=== PATIENT | female | born 1985 | race Caucasian/White ===

== ENCOUNTER 2022-01-27 00:56 | Emergency (ER) | payer OTHER, SELFPAY ==
[2022-01-27 01:04] VITALS: BP 104/56; PULSE 101; RESP 18; TEMP 36.9; O2SAT 100; BMI 33.6
[2022-01-27 02:17] VITALS: BP 109/60; PULSE 92; RESP 16; TEMP 36.8; O2SAT 100
[2022-01-27 02:36] VITALS: BP 101/41; PULSE 89; TEMP 36.7; O2SAT 100; BMI 32.8
[2022-01-27 04:00] VITALS: BP 103/58; PULSE 85; RESP 17; O2SAT 97
[2022-01-27] MEDS: Lidocaine HCl 1 % MPF 5 ML VIAL SUBCUT (04:46)
--- NOTE | 2022-01-27 04:46 | ED_ITS ---
HPI - Skin/Abscess/Foreign Bdy General Chief complaint: Skin/Abscess/Foreign Body Stated complaint: lump in breast Time Seen by Provider: 01/27/22 01:13 Source: patient Mode of arrival: ambulatory History of Present Illness HPI narrative: 36-year-old female who presents with increasing redness and swelling at the underside of her right breast not associated with any fevers or chills and she denies noting any pimple and does not recall scratching at the skin. Related Data Previous Rx's Medication Instructions Recorded doxycycline hyclate 100 mg tablet 100 mg PO BID 5 days #10 tabs 01/27/22 Allergies Allergy/AdvReac Type Severity Reaction Status Date / Time ibuprofen [From MOTRIN] Allergy Intermediate SWELLING Verified 01/27/22 02:46 Review of Systems Review of Systems: Pertinent positives and negatives as stated in HPI 10 point review of systems is otherwise negative. PMFSH Past Medical History Source: nursing notes reviewed Social History Social History Alcohol intake: never Patient Tobacco Use Status: Current everyday Tobacco user Smoked in Last 30 Days: Yes Use of substances other than those prescribed or required for medical reasons: No Advance Directives: No Patient : No Physical Exam Vital Signs: Vital Signs: Last Vital Signs Temp 98.1 F 01/27/22 02:36 Pulse 85 01/27/22 04:00 Resp 17 01/27/22 04:00 BP 103/58 L 01/27/22 04:00 Pulse Ox 97 01/27/22 04:00 O2 Del Method 01/27/22 04:00 BMI result Body Mass Index 32.8 VITAL SIGNS: Reviewed. GENERAL: Well developed, well nourished, in no acute distress. HEAD: Normocephalic/atraumatic EYES: PERRLA, EOMI EARS: Ext canals without abnormality OROPHARYNX: no oral lesions noted, posterior pharynx clear LUNGS: Normal breath sounds. SpO2<97> RIGHT BREST: There is noted abscess to the 06:00 o'clock underside portion of the right breast with noted fluctuance and surrounding erythema CARDIOVASCULAR: Regular rate and rhythm without noted murmurs ABDOMEN: Soft, non-tender, non-distended with bowel sounds. MUSCULOSKELETAL: No tenderness, deformities, or effusions noted on gross inspection. EXTREMITIES: No cyanosis, clubbing or edema. SKIN: Inspection of the skin reveals no rashes NEUROLOGIC: Alert and oriented x 4. Strength and sensation to light touch were grossly intact x 4. Course Course Course Narrative: 36-year-old female with history and clinical presentation consistent with right breast abscess, she underwent a needle syringe aspiration for copious amounts purulence after application of topical anesthetic. Patient tolerated procedure well, received initial antibiotics here in the emergency room and then was discharged on remaining course. Procedures Abscess I/D Site: other (Breast) Side (if applicable): right Local Anesthetic: lidocaine 1% Amount of anesthesia used (mL): 1 Technique: needle aspiration Amount of fluid expressed (mL): 20 Sent for culture/gram staining?: No Irrigation: No Packing used?: none Discharge Plan Discharge Clinical Impression: Abscess of breast, right, Status post fine needle aspiration Patient Disposition: Home, Self-Care Instructions: Mastitis (ED), Warm Compress or Soak (ED) Additional Instructions: 1. Resume all home medications as prescribed. 2. Recommend [id number] Tylenol/ibuprofen as needed for pain control. Rec ommend warm moist soaks, 3 to 4 times a day. 3. Complete the entire course of antibiotics as prescribed. 4. It is very important that you follow-up with your primary care provider by calling the office on Friday morning to schedule an appointment for re- evaluation. Prescriptions: New doxycycline hyclate 100 mg tablet 100 mg PO BID 5 Days Qty: 10 0RF Referrals: Dickson Alvarado MD [Primary Care Provider] -
== END 2022-01-27 05:13 | disposition home or self-care (01) ==
PROVIDERS: Emergency Provider Student in an Organized Health Care Education/Training Program; PCP Internal Medicine
DX: N61.1 Abscess of the breast and nipple (principal); F17.200 Nicotine dependence, unspecified, uncomplicated
CPT/HCPCS: 10160; 99284

== ENCOUNTER 2022-09-08 16:38 | Emergency (ER) | payer OTHER, SELFPAY ==
--- NOTE | ~2022-09-08 | XR_ITS ---
EXAMINATION: XR CHEST CLINICAL INFORMATION: Shortness of breath COMPARISON: Chest x-ray on 09/11/2013 TECHNIQUE: Frontal view of the chest was obtained. FINDINGS: No significant abnormality is noted involving the heart, lungs, mediastinum, bony thorax or soft tissues. XR/XR chest 1V IMPRESSION: Unremarkable examination.
--- NOTE | ~2022-09-08 | US_ITS ---
EXAMINATION: US VENOUS ULTRASOUND WITH DOPPLER LOWER EXTREMITY, LEFT CLINICAL INFORMATION: Left lower extremity pain COMPARISON: None TECHNIQUE: Ultrasound of the deep veins is performed from the hip to the calf with compression sonography and color and pulse Doppler assessment. Spectral analysis with color-flow imaging is performed. FINDINGS: There is normal venous compression and respiratory variation and augmented flow. The visualized common femoral vein, superficial femoral vein, profunda femoral vein, popliteal vein, and the trifurcation region shows no evidence of deep venous thrombosis. There is no significant popliteal fossa cyst. If the patient's symptoms persist, followup ultrasound in 5 days 7 days might be of value to exclude proximal propagation from a non-visualized calf vein. US/US venous duplex LE LT IMPRESSION: No DVT demonstrated in the left lower extremity.
--- NOTE | 2022-09-08 16:41 | ED_ITS ---
HPI - General Adult General Chief complaint: General Medical <GILSON Art - Last Filed: 09/08/22 16:44> Stated complaint: blood clot? sent from urgent care <GILSON Art - Last Filed: 09/08/22 16:44> Time Seen by Provider: 09/08/22 18:22 <GILSON Art - Last Filed: 09/08/22 16:44> Source: patient, RN notes reviewed and old records reviewed <Cecilio Murray - Last Filed: 09/08/22 19:39> Mode of arrival: ambulatory <Cecilio Murray - Last Filed: 09/08/22 19:39> Limitations: no limitations <Cecilio Murray - Last Filed: 09/08/22 19:39> History of Present Illness HPI narrative: 36-year-old female who denies any significant past medical history presents for evaluation of left leg swelling. Patient reports that her leg has been swollen for the last 6 days. She reports it is moderately uncomfortable with achy pain at 5/10 pain The pain radiates to behind the left calf She denies any injury to the lower extremity. She denies any chest pain or shortness of breath. Denies any history of DVTs. She does report having a drug eluting IUD. Denies any recent travel Of note, the patient states that she was prescribed p.r.n. clonidine it took 1 dose last Friday, 2 days before the leg swelling, she is unsure if this is relat ed. She also reports that a few days before the onset of her symptoms she developed severe bilateral back pain that was worse with walking up the stairs. She does report a history of back surgeries. And she currently has no back pain <Cecilio Murray - Last Filed: 09/08/22 19:39> Related Data Home medications: Previous Rx's Medication Instructions Recorded doxycycline hyclate 100 mg tablet 100 mg PO BID 5 days #10 tabs 01/27/22 <GILSON Art - Last Filed: 09/08/22 16:44> Allergies/adverse reactions: Allergies Allergy/AdvReac Type Severity Reaction Status Date / Time ibuprofen [From MOTRIN] Allergy Intermediate SWELLING Verified 01/27/22 02:46 <GILSON Art - Last Filed: 09/08/22 16:44> Review of Systems Constitutional: Constitutional: Reports as per HPI, Denies chills and Denies fatigue <Cecilio Murray - Last Filed: 09/08/22 19:39> Cardiovascular: Cardiovascular: Denies chest pain, Reports pedal edema and Denies dyspnea <Cecilio Murray - Last Filed: 09/08/22 19:39> Respiratory: Respiratory: Denies cough and Denies dyspnea <Ceciliojcarlos Murray - Last Filed: 09/08/22 19:39> Gastrointestinal: Gastrointestinal: Denies abdominal pain, Denies constipation and Denies vomiting <Cecilio Murray - Last Filed: 09/08/22 19:39> Genitourinary: Genitourinary: Denies dysuria <Cecilio Murray - Last Filed: 09/08/22 19:39> Musculoskeletal: Comments: Patient has to 3+ nonpitting edema to the left lower extremity up to just below the knee. There is a mild abrasion to the left anterior knee. No significant edema or laceration. Patient is nontender with manipulation of the left hip, knee, ankle. Patient does have tenderness the left calf without deformity <Cecilio Murray - Last Filed: 09/08/22 19:39> Endocrine: Endocrine: Denies fatigue <Cecilio Murray - Last Filed: 09/08/22 19:39> [facility] Social History Social History: Social History Alcohol intake: never Patient Tobacco Use Status: Current everyday Tobacco user Advance Directives: No Advance Directives Information Provided: No <GILSON Art - Last Filed: 09/08/22 16:44> Physical Exam ED Vital Signs: Vital Signs - 24 hr 09/08/22 16:42 09/08/22 19:35 Temperature 98.5 F 98.0 F Pulse Rate 102 H 74 Respiratory Rate 18 18 Blood Pressure 129/83 108/71 Pulse Oximetry 100 99 Oxygen Delivery Method Room Air Room Air BMI result Body Mass Index 38.0 <GILSON Art - Last Filed: 09/08/22 16:44> Vital Signs - 24 hr 09/08/22 16:42 09/08/22 19:35 Temperature 98.5 F 98.0 F Pulse Rate 102 H 74 Respiratory Rate 18 18 Blood Pressure 129/83 108/71 Pulse Oximetry 100 99 Oxygen Delivery Method Room Air Room Air BMI result Body Mass Index 38.0 <Cecilio OCaribou - Last Filed: 09/08/22 19:39> Const General: healthy appearing, comfortable, no acute distress, alert and awake <Cecilio - Last Filed: 09/08/22 19:39> Nutritional Appearance: well nourished < - Last Filed: 09/08/22 19:39> Orientation/consciousness: patient oriented x3 < - Last Filed: 09/08/22 19:39> Eyes Eyelids: Yes eyelids normal < - Last Filed: 09/08/22 19:39> Conjunctivae: conjunctivae normal < - Last Filed: 09/08/22 19:39> Sclerae: sclerae normal < Last Filed: 09/08/22 19:39> Corneas: corneas normal < - Last Filed: 09/08/22 19:39> Pupils: Equal, round and reactive pupils present <Cecilio O - Last Filed: 09/08/22 19:39> EOM: EOMs intact bilaterally <Cecilio - Last Filed: 09/08/22 19:39> Resp Effort & Inspection: normal respiratory effort, able to speak in complete sentences, no audible wheezes and not labored < Last Filed: 09/08/22 19:39> Skin Other: No skin changes to the left lower extremity including erythema, increased warmth, ecchymosis. < - Last Filed: 09/08/22 19:39> General skin exam: no rashes or lesions noted and elasticity normal < - Last Filed: 09/08/22 19:39> Lesions: no lesions < - Last Filed: 09/08/22 19:39> Rashes: no rashes <Cecilio JpTad - Last Filed: 09/08/22 19:39> Neuro General: patient oriented x3 <Cecilio WarrenLouiseTad - Last Filed: 09/08/22 19:39> Cranial nerves: Yes Equal, round and reactive pupils present <Cecilio WarrenLouiseTad - Last Filed: 09/08/22 19:39> Extrem General: Yes full ROM <Cecilio Murray - Last Filed: 09/08/22 19:39> Course Course Course Narrative: This is an RME: Additional HPI, ROS, PE not included below will be deferred to primary provider. 36-year-old female without significant medical history presents with left lower extremity pain and swelling and tenderness the calf. Was sent in for her on the urgent care to rule out DVT of left lower extremity. Reports shortness of breath with exertion. Also has been experiencing chest pain with exertion. Patient currently on IUD for control. No history of clots. Denies long travel. Physical exam left lower extremity with 2+ pitting edema, normal right lower extremity. Palpable pulses, dorsalis pedis, anterior tibialis and posterior tibialis 2+ equal bilateral. Concerns for DVT. Obtain venous duplex and basic labs. <GILSON Art - Last Filed: 09/08/22 16:44> Medical Decision Making Medical Decision Making MDM Narrative: 36-year-old female presents for evaluation of unilateral leg swelling with this atraumatic. He denies any associated symptoms. She reports that she started clonidine 2 days prior to the onset of her leg swelling relative 1 dose and nurse notes have not improved. She was attempting to elevate her legs without improvement. She had ultrasound that rules out DVT. There are notice changes to suggest infectious cause. There are no traumatic injuries. Of note, the patient did state that just before symptoms she had severe back pain. The it is unlikely that she would have a clot below the bifurcation of the aorta but not picked up by duplex sonography. I discussed all this with the patient. She will follow-up with her PCP for repeat ultrasound in 1 week if her symptoms persist <Cecilio Murray - Last Filed: 09/08/22 19:39> Differential Diagnosis Leg swelling Dependent edema Cellulitis DVT Pierce cyst <Cecilio Murray - Last Filed: 09/08/22 19:39> Lab Data Result Diagrams: 09/08/22 16:58 09/08/22 16:58 <GILSON Art - Last Filed: 09/08/22 16:44> Labs: Lab Results 09/08/22 09/08/22 09/08/22 Range/Units 16:58 16:58 16:58 WBC 7.5 (4.8-10.8) X10*3/uL RBC 4.20 (4.20-5.50) X10*6/uL Hgb 12.9 (12.0-16.0) g/dl Hct 37.2 (37.0-47.0) % MCV 88.6 (80.0-98.0) fL MCH 30.7 (27.0-33.0) pg MCHC 34.7 (31.0-35.0) g/dl RDW 11.7 (11.0-16.0) % Plt Count 262 (160-400) X10*3/uL MPV 10.0 (9.4-12.3) fL Immature Gran % (Auto) 0.3 (0.0-0.4) % Neut % (Auto) 56.7 (45-73) % Lymph % (Auto) 32.1 (20-40) % Coke % (Auto) 6.0 (2-11) % Eos % (Auto) 4.1 H (0-4) % Baso % (Auto) 0.8 (0-2) % Lymph # (Auto) 2.4 (1.2-4.9) X10*3/uL Coke # (Auto) 0.5 (0.1-1.2) X10*3/uL Eos # (Auto) 0.3 (0.0-0.4) X10*3/uL Baso # (Auto) 0.1 (0.0-0.2) X10*3/uL Abs Immat Gran (auto) 0.02 (0.00-0.03) X10*3/uL Absolute Neuts (auto) 4.3 (2.0-8.3) x10*3/uL Absolute Nucleated RBC 0.000 (0.0-0.012) X10*3/uL Nucleated RBC % (auto) 0.0 (0.0-0.2) /100WBC PT 12.2 (10.0-13.1) SEC INR 1.1 (0.9-1.1) D-Dimer High Sensitivty 181 NG/ML Sodium 141 (135-145) mmol/L Potassium 4.0 (3.3-5.1) mmol/L Chloride 108 (96-108) mmol/L Carbon Dioxide 23 (22-29) mmol/L Anion Gap 14 (12-20) BUN 10 (9-16) mg/dL Creatinine 0.80 (0.5-1.4) mg/dL Estim Creat Clear Calc 108.0 Estimated GFR > 60 Random Glucose 94 (60-115) mg/dL Calcium 8.8 (8.4-10.2) mg/dL Magnesium 1.7 (1.6-2.6) mg/dL Total Bilirubin 0.5 (0.0-1.0) mg/dL AST 18 (5-31) U/L ALT 15 (0-31) U/L Alkaline Phosphatase 66 (39-117) U/L Troponin I High Sens (<3.5-17.0) ng/L B-Natriuretic Peptide (<100) pg/mL Total Protein 6.8 (6.5-8.0) g/dL Albumin 3.9 (3.5-5.0) g/dL COVID-19 ([facility]) (Negative) COVID-19 Clin Com 09/08/22 09/08/22 09/08/22 Range/Units 16:58 16:58 16:59 WBC (4.8-10.8) X10*3/uL RBC (4.20-5.50) X10*6/uL Hgb (12.0-16.0) g/dl Hct (37.0-47.0) % MCV (80.0-98.0) fL MCH (27.0-33.0) pg MCHC (31.0-35.0) g/dl RDW (11.0-16.0) % Plt Count (160-400) X10*3/uL MPV (9.4-12.3) fL Immature Gran % (Auto) (0.0-0.4) % Neut % (Auto) (45-73) % Lymph % (Auto) (20-40) % Coke % (Auto) (2-11) % Eos % (Auto) (0-4) % Baso % (Auto) (0-2) % Lymph # (Auto) (1.2-4.9) X10*3/uL Coke # (Auto) (0.1-1.2) X10*3/uL Eos # (Auto) (0.0-0.4) X10*3/uL Baso # (Auto) (0.0-0.2) X10*3/uL Abs Immat Gran (auto) (0.00-0.03) X10*3/uL Absolute Neuts (auto) (2.0-8.3) x10*3/uL Absolute Nucleated RBC (0.0-0.012) X10*3/uL Nucleated RBC % (auto) (0.0-0.2) /100WBC PT (10.0-13.1) SEC INR (0.9-1.1) D-Dimer High Sensitivty NG/ML Sodium (135-145) mmol/L Potassium (3.3-5.1) mmol/L Chloride (96-108) mmol/L Carbon Dioxide (22-29) mmol/L Anion Gap (12-20) BUN (9-16) mg/dL Creatinine (0.5-1.4) mg/dL Estim Creat Clear Calc Estimated GFR Random Glucose (60-115) mg/dL Calcium (8.4-10.2) mg/dL Magnesium (1.6-2.6) mg/dL Total Bilirubin (0.0-1.0) mg/dL AST (5-31) U/L ALT (0-31) U/L Alkaline Phosphatase (39-117) U/L Troponin I High Sens < 3.5 (<3.5-17.0) ng/L B-Natriuretic Peptide 28 (<100) pg/mL Total Protein (6.5-8.0) g/dL Albumin (3.5-5.0) g/dL COVID-19 ([facility]) Negative (Negative) COVID-19 Clin Com See Note <GILSON Art - Last Filed: 09/08/22 16:44> Lab Results 02/09/08/22 09/08/22 Range/Units 16:58 16:58 16:58 WBC 7.5 (4.8-10.8) X10*3/uL RBC 4.20 (4.20-5.50) X10*6/uL Hgb 12.9 (12.0-16.0) g/dl Hct 37.2 (37.0-47.0) % MCV 88.6 (80.0-98.0) fL MCH 30.7 (27.0-33.0) pg MCHC 34.7 (31.0-35.0) g/dl RDW 11.7 (11.0-16.0) % Plt Count 262 (160-400) X10*3/uL MPV 10.0 (9.4-12.3) fL Immature Gran % (Auto) 0.3 (0.0-0.4) % Neut % (Auto) 56.7 (45-73) % Lymph % (Auto) 32.1 (20-40) % Coke % (Auto) 6.0 (2-11) % Eos % (Auto) 4.1 H (0-4) % Baso % (Auto) 0.8 (0-2) % Lymph # (Auto) 2.4 (1.2-4.9) X10*3/uL Coke # (Auto) 0.5 (0.1-1.2) X10*3/uL Eos # (Auto) 0.3 (0.0-0.4) X10*3/uL Baso # (Auto) 0.1 (0.0-0.2) X10*3/uL Abs Immat Gran (auto) 0.02 (0.00-0.03) X10*3/uL Absolute Neuts (auto) 4.3 (2.0-8.3) x10*3/uL Absolute Nucleated RBC 0.000 (0.0-0.012) X10*3/uL Nucleated RBC % (auto) 0.0 (0.0-0.2) /100WBC PT 12.2 (10.0-13.1) SEC INR 1.1 (0.9-1.1) D-Dimer High Sensitivty 181 NG/ML Sodium 141 (135-145) mmol/L Potassium 4.0 (3.3-5.1) mmol/L Chloride 108 (96-108) mmol/L Carbon Dioxide 23 (22-29) mmol/L Anion Gap 14 (12-20) BUN 10 (9-16) mg/dL Creatinine 0.80 (0.5-1.4) mg/dL Estim Creat Clear Calc 108.0 Estimated GFR > 60 Random Glucose 94 (60-115) mg/dL Calcium 8.8 (8.4-10.2) mg/dL Magnesium 1.7 (1.6-2.6) mg/dL Total Bilirubin 0.5 (0.0-1.0) mg/dL AST 18 (5-31) U/L ALT 15 (0-31) U/L Alkaline Phosphatase 66 (39-117) U/L Troponin I High Sens (<3.5-17.0) ng/L B-Natriuretic Peptide (<100) pg/mL Total Protein 6.8 (6.5-8.0) g/dL Albumin 3.9 (3.5-5.0) g/dL COVID-19 ([facility]) (Negative) COVID-19 Clin Com 09/08/22 09/08/22 09/08/22 Range/Units 16:58 16:58 16:59 WBC (4.8-10.8) X10*3/uL RBC (4.20-5.50) X10*6/uL Hgb (12.0-16.0) g/dl Hct (37.0-47.0) % MCV (80.0-98.0) fL MCH (27.0-33.0) pg MCHC (31.0-35.0) g/dl RDW (11.0-16.0) % Plt Count (160-400) X10*3/uL MPV (9.4-12.3) fL Immature Gran % (Auto) (0.0-0.4) % Neut % (Auto) (45-73) % Lymph % (Auto) (20-40) % Coke % (Auto) (2-11) % Eos % (Auto) (0-4) % Baso % (Auto) (0-2) % Lymph # (Auto) (1.2-4.9) X10*3/uL Coke # (Auto) (0.1-1.2) X10*3/uL Eos # (Auto) (0.0-0.4) X10*3/uL Baso # (Auto) (0.0-0.2) X10*3/uL Abs Immat Gran (auto) (0.00-0.03) X10*3/uL Absolute Neuts (auto) (2.0-8.3) x10*3/uL Absolute Nucleated RBC (0.0-0.012) X10*3/uL Nucleated RBC % (auto) (0.0-0.2) /100WBC PT (10.0-13.1) SEC INR (0.9-1.1) D-Dimer High Sensitivty NG/ML Sodium (135-145) mmol/L Potassium (3.3-5.1) mmol/L Chloride (96-108) mmol/L Carbon Dioxide (22-29) mmol/L Anion Gap (12-20) BUN (9-16) mg/dL Creatinine (0.5-1.4) mg/dL Estim Creat Clear Calc Estimated GFR Random Glucose (60-115) mg/dL Calcium (8.4-10.2) mg/dL Magnesium (1.6-2.6) mg/dL Total Bilirubin (0.0-1.0) mg/dL AST (5-31) U/L ALT (0-31) U/L Alkaline Phosphatase (39-117) U/L Troponin I High Sens < 3.5 (<3.5-17.0) ng/L B-Natriuretic Peptide 28 (<100) pg/mL Total Protein (6.5-8.0) g/dL Albumin (3.5-5.0) g/dL COVID-19 ([facility]) Negative (Negative) COVID-19 Clin Com See Note <Cecilio Murray - Last Filed: 09/08/22 19:39> Discharge Plan Discharge Clinical Impression: Leg edema, left <GILSON Art - Last Filed: 09/08/22 16:44> Patient Disposition: Home, Self-Care <GILSON Art - Last Filed: 09/08/22 16:44> Instructions: Leg Edema (ED) <GILSON Art - Last Filed: 09/08/22 16:44> Additional Instructions: Your ultrasound was negative for blood clots. Your blood work was within normal limits. It is possible that your medication change good contribute to the leg swelling, I advised that you stop taking the clonidine. Repeat ultrasound in 5-7 days if her symptoms persist <GILSON Art - Last Filed: 09/08/22 16:44> Prescriptions: No Action doxycycline hyclate 100 mg tablet 100 mg PO BID 5 Days Qty: 10 0RF <GILSON Art - Last Filed: 09/08/22 16:44>
[2022-09-08 16:42] VITALS: BP 129/83; PULSE 102; RESP 18; TEMP 36.9; O2SAT 100; BMI 38.0
--- NOTE | 2022-09-08 16:43 | ECG_ITS ---
Test Reason : SWOLLEN LEGS Blood Pressure : / mmHG Vent. Rate : 077 BPM Atrial Rate : 077 BPM P-R Int : 158 ms QRS Dur : 088 ms QT Int : 404 ms P-R-T Axes : 061 051 042 degrees QTc Int : 457 ms Normal sinus rhythm with sinus arrhythmia Nonspecific T wave abnormality Abnormal ECG No previous ECGs available Referred By: Rg Potts Electronically Signed By:RITA GELLER
[2022-09-08 17:05] LABS: MANUAL DIFF FLAG NO
[2022-09-08 17:08] LABS: Basophils Absolute Auto 0.1 X10*3/uL (0.0-0.2); Basophils Percent Auto 0.8 % (0-2); Eosinophils Absolute Auto 0.3 X10*3/uL (0.0-0.4); Eosinophils Percent Auto 4.1 % (0-4); Hematocrit 37.2 % (37.0-47.0); Hemoglobin 12.9 g/dl (12.0-16.0); Imm Gran Abs Auto 0.02 X10*3/uL (0.00-0.03); Imm Gran Pct Auto 0.3 % (0.0-0.4); Lymphocytes Absolute Auto 2.4 X10*3/uL (1.2-4.9); Lymphocytes Percent Auto 32.1 % (20-40); Mean Corpuscular HGB Conc 34.7 g/dl (31.0-35.0); Mean Corpuscular Hemoglobin 30.7 pg (27.0-33.0); Mean Corpuscular Volume 88.6 fL (80.0-98.0); Monocytes Absolute Auto 0.5 X10*3/uL (0.1-1.2); Neutrophils Absolute Auto 4.3 x10*3/uL (2.0-8.3); Neutrophils Percent Auto 56.7 % (45-73); Platelet Count 262 X10*3/uL (160-400); Red Cell Distribution Width 11.7 % (11.0-16.0); White Blood Count 7.5 X10*3/uL (4.8-10.8)
[2022-09-08 17:21] LABS: COVID-19 Test Negative (Negative); IDNOW Serial# 55D5AD1C
[2022-09-08 17:22] LABS: Alanine Aminotransferase 15 U/L (0-31); Albumin Level 3.9 g/dL (3.5-5.0); Alkaline Phosphatase 66 U/L (39-117); Anion Gap 14 (12-20); Aspartate Amino Transferase 18 U/L (5-31); Bilirubin Total 0.5 mg/dL (0.0-1.0); Blood Urea Nitrogen 10 mg/dL (9-16); Calcium 8.8 mg/dL (8.4-10.2); Carbon Dioxide 23 mmol/L (22-29); Chloride 108 mmol/L (96-108); Estimated Glomerular Filt Rate > 60; Glucose Random 94 mg/dL (60-115); Magnesium 1.7 mg/dL (1.6-2.6); Sodium 141 mmol/L (135-145); Total Protein 6.8 g/dL (6.5-8.0)
[2022-09-08 17:33] LABS: Troponin-I High Sensitivity < 3.5 ng/L (<3.5-17.0)
[2022-09-08 17:50] LABS: INTERNATIONAL NORM RATIO 1.1 (0.9-1.1); Prothrombin Time 12.2 SEC (10.0-13.1)
[2022-09-08 17:57] LABS: B Type Natriuretic Peptide 28 pg/mL (<100)
[2022-09-08 18:51] LABS: D Dimer High Sensitivity 181 NG/ML
[2022-09-08 19:35] VITALS: BP 108/71; PULSE 74; RESP 18; TEMP 36.7; O2SAT 99
== END 2022-09-08 19:59 | disposition home or self-care (01) ==
PROVIDERS: Physician Assistant; Emergency Provider Emergency Medicine
DX: R60.0 Localized edema (principal); R06.02 Shortness of breath; Z20.822 Contact with and (suspected) exposure to COVID-19; Z20.828 Contact with and (suspected) exposure to other viral communicable diseases; Z79.899 Other long term (current) drug therapy
CPT/HCPCS: 71045; 80053; 83735; 83880; 84484; 85025; 85379; 85610; 87635; 93005; 93971; 99283

== ENCOUNTER 2023-04-16 19:26 | Emergency (ER) | payer OTHER, SELFPAY ==
--- NOTE | 2023-04-16 19:51 | ED.GENADULT ---
HPI - General Adult General Chief complaint: Dental/Oral Stated complaint: abscess in mouth, meds aren't working Source: patient, RN notes reviewed and old records reviewed Mode of arrival: ambulatory History of Present Illness HPI narrative: 37-year-old female with a past medical history of recently diagnosed dental abscess seen at on Friday, Rx Peniciliin V, which she reports compliance, presenting to the ED c/o persistent/worsening pain and facial swelling. Denies active drainage, difficulty or inability to swallow, fever, chills, recent dental procedures Related Data Previous Rx's Medication Instructions Recorded doxycycline hyclate 100 mg tablet 100 mg PO BID 5 days #10 tabs 01/27/22 amoxicillin 875 mg-potassium 1 tab PO BID 7 days #14 tabs 04/16/23 clavulanate 125 mg tablet Allergies Allergy/AdvReac Type Severity Reaction Status Date / Time ibuprofen [From MOTRIN] Allergy Intermediate SWELLING Verified 01/27/22 02:46 Review of Systems Review of Systems: Constitutional: No Fever, No Chills ENT/Mouth: +dental pain, +facial swelling, No Ear Pain, No Nasal Congestion, No Sinus Pain, No Hoarseness, No sore throat, No Rhinorrhea, No Swallowing Difficulty Cardiovascular: No Chest Pain, No SOB Respiratory: No Cough, No Sputum Gastrointestinal: No Nausea, No Vomiting, No Abdominal pain Genitourinary: No Dysuria, No Urinary Frequency Musculoskeletal: No joint pain, No Myalgias, No Joint Swelling Skin: No Skin Lesions, No rash Neuro: No Weakness Yes all other systems are reviewed and are negative Constitutional: Constitutional: Reports as per [facility] Past Medical History Attestation statement: The following information was validated with the patient. Source: old records reviewed Social History Social History Alcohol intake: never Patient Tobacco Use Status: Current everyday Tobacco user Physical Exam ED Vital Signs: Vital Signs - 24 hr 04/16/23 19:52 Temperature 97.4 F Pulse Rate 82 Respiratory Rate 20 Blood Pressure 130/74 Pulse Oximetry 98 Oxygen Delivery Method Room Air BMI result Body Mass Index 36.7 Const General: cooperative, healthy appearing and no acute distress Orientation/consciousness: patient oriented x3 Limitations: no limitations HENMT Other: + right-sided lower facial/jaw swelling noted. Mildly tender. + large dental abscess noted to right lower premolar with fluctuance. Tender to palpation. No active drainage. Poor dentition w/multiple caries Head: Yes normal to inspection and Yes atraumatic Ears: hearing grossly normal bilaterally General nose exam: Normal external nose present Mouth: no audible dysphonia, no drooling and no trismus Throat: Yes posterior oropharynx normal, Yes tonsils normal, Yes uvula midline, No uvula laterally displaced and No uvular edema Eyes General: appearance normal, both eyes and all related structures EOM: EOMs intact bilaterally Neck Neck: Yes normal visual inspection, Yes no meningeal signs, No anterior neck swelling and No torticollis Resp Effort & Inspection: normal respiratory effort, no respiratory distress and no stridor Cardio Rate: regular rate Skin Rashes: no rashes Wounds: no wounds Neuro General: patient oriented x3, tone normal and no meningeal signs Cranial nerves: Yes CN's II-XII intact bilaterally Gait exam (Neuro): Normal gait present Extrem General: Yes normal to inspection Course Course Course Narrative: RME: 37yo F w/PMHx dental abscess seen at on Friday Rx Peniciliin V, which she reports compliance, c/o persistent/worsening pain and swelling. Denies difficulty or inability to swallow, fever, chills, dental procedures Full HPI, ROS and PE to be performed by primary ED provider. Procedures Abscess I/D Site: oral Side (if applicable): right Sedation/analgesia: other (lolicaine) Technique: needle aspiration Amount of fluid expressed (mL): 2 Medical Decision Making Medical Decision Making MDM Narrative: 37-year-old female with a past medical history of recently diagnosed dental abscess seen at on Friday, Rx Peniciliin V, which she reports compliance, presenting to the ED c/o persistent/worsening pain and facial swelling. On exam vital signs stable, NAD, nontoxic appearing, physical exam as noted above with right-sided lower facial swelling with fluctuant right lower premolar abscess. Posterior oropharynx WNL, talking in complete sentences, no respiratory distress, no drooling, uvula midline. Concern for dental abscess. Low suspicion for pharyngitis, [employer], retropharyngeal abscess Plan: I & D, change antibiotics Please refer to course for remaining clinical decision making, interpretation of labs/imaging results, and discussions with consultants and/or family members. Differential Diagnosis Differential Diagnoses: The differential diagnosis associated with the presentation includes As above External Record Review External record reviewed: Inpatient record, Office record, Outpatient record, Prior outpatient labs, Prior outpatient radiology, Primary care record and Outside ED record Tests considered The following testing was considered but not selected: As above Prescription Management I considered prescription management with: Pain Medication and Antibiotic Discharge Plan Discharge Clinical Impression: Dental abscess Patient Disposition: Home, Self-Care Instructions: Dental Abscess (ED), Abscess Incision and Drainage (DC) Additional Instructions: Your abscess was drained today in the emergency department. you can stop taking previously prescribed antibiotic and start taking new antibiotic, Augmentin Take Tylenol /Motrin for pain Continue to milk the area Please follow-up with a dentist If symptoms persist or worsen return to the ED Prescriptions: New amoxicillin-pot clavulanate 875-125 mg tablet 1 tab PO BID 7 Days Qty: 14 0RF No Action doxycycline hyclate 100 mg tablet 100 mg PO BID 5 Days Qty: 10 0RF Referrals: Donavan Goddard [Dentist] - Jayjay Oliveira DMD [Dentist] - Enriqueta Colmenares DMD [Dentist] - Mayco Hinojosa DDS [Physician] - Stand Alone Forms: Work/School Release Discharge Date/Time: 04/16/23 20:12
[2023-04-16 19:52] VITALS: BP 130/74; PULSE 82; RESP 20; TEMP 36.3; O2SAT 98; BMI 36.7
[2023-04-16] MEDS: Amoxicillin/Potassium Clav 875 MG TABLET PO (20:10)
--- NOTE | 2023-04-16 20:12 | PC.NURSE ---
pt a&o, reviewed discharge instructions with pt. pt verbalized understanding. no sign of distress.
== END 2023-04-16 20:12 | disposition home or self-care (01) ==
PROVIDERS: Emergency Provider Emergency Medicine; PCP Internal Medicine
DX: K04.7 Periapical abscess without sinus (principal)
CPT/HCPCS: 41800; 99282; 99284